=== PATIENT | male | born 1935 | race African-American/Black ===

== ENCOUNTER 2016-07-17 01:23 | Inpatient (IN) | payer MEDICARE ==
[2016-07-17] VITALS (8 sets, daily range): BP systolic 118–152; BP diastolic 63–80
[~2016-07-17] VITALS: Ht 172.7 cm; Wt 59.9 kg
[2016-07-17] MEDS ORDERED: fentaNYL PF VIAL 100 MCG/2 ML VIAL IV PRN (02:00)
[2016-07-17 03:07] LABS: BASO % 0 % (0-3); EOS % 4 % (0-3); HEMATOCRIT 35.1 % (39.0-53.0); HEMOGLOBIN 11.4 g/dL (13.0-17.5); LYMPH # 0.6 x10^3/uL (1.0-4.8); LYMPH % 12 % (24-48); MEAN CORPUSCULAR HEMOGLOBIN 30 pg (25-35); MEAN CORPUSCULAR HGB CONC 33 g/dL (31-37); MEAN CORPUSCULAR VOLUME 91 fL (79-100); MONO % 11 % (0-9); NEUT % 73 % (31-73); PLATELET COUNT 216 x10^3/uL (140-400); RED BLOOD COUNT 3.84 x10^6/uL (4.30-5.70); RED CELL DISTRIBUTION WIDTH 16.4 % (11.5-14.5); WHITE BLOOD COUNT 4.8 x10^3/uL (4.0-11.0)
[2016-07-17 03:09] LABS: BILIRUBIN,URINE NEGATIVE (NEG); GLUCOSE,URINE NEGATIVE (NEG); NITRITE,URINE NEGATIVE (NEG); PROTEIN,URINE 100 mg/dL (NEG-TRACE); UROBILINOGEN,URINE 0.2 mg/dL (0.2 mg/dL)
[2016-07-17 03:19] LABS: GFR 86.8; POTASSIUM 3.9 mmol/L (3.5-5.1)
[2016-07-17 03:24] LABS: INR 1.2 (0.8-1.1); PROTHROMBIN TIME PATIENT 14.5 SEC (11.7-14.0)
[2016-07-17 03:25] LABS: ALBUMIN 2.9 g/dL (3.4-5.0); ALBUMIN/GLOBULIN RATIO 0.6 (1.0-1.7); TOTAL BILIRUBIN 0.3 mg/dL (0.2-1.0); TOTAL PROTEIN 7.4 g/dL (6.4-8.2)
[2016-07-17 03:33] LABS: BACTERIA,URINE FEW /HPF (0-FEW); SQUAMOUS EPITHELIAL CELL,UR MOD /LPF
--- NOTE | 2016-07-17 04:23 | RAD ---
CT head without contrast: Reason for examination: Fell twice tonight with pain. Comparison is made to previous study dated 07/25/2004. Axial images were obtained through the brain. No contrast was administered. Ventricular systems are dilated but symmetric consistent with patient's advanced age and generalized cerebral atrophy. There are areas of decreased density in the frontal lobes bilaterally consistent with severe ischemic changes and chronic infarcts. There is no midline shift. There is no evidence of acute intracranial hemorrhage. There are patchy deep white matter changes in the frontoparietal and parietal lobes. No new masses or edema evident. No abnormalities are seen at the orbits. There is opacification of the visualized portions of the right maxillary antrum. There is also some mild mucosal disease in the sphenoid sinuses and ethmoid air cells. No acute skull abnormality is seen. IMPRESSION: Cerebral atrophy with chronic age-related changes in the deep white matter and chronic changes in the frontal lobes bilaterally consistent with ischemic changes and chronic infarcts. No acute intracranial abnormality seen. Paranasal sinus disease bilaterally. CT cervical spine without contrast: Helical images were obtained through the cervical spine from the skull base to the thoracic apices with no contrast administered. Reconstruction was performed in sagittal and coronal plane. The C1 ring appears to be intact. The odontoid process is intact and normally centered between the lateral masses of C1. The cervical vertebral bodies are normally aligned anteriorly and posteriorly. No acute fracture or subluxation is evident. There are severe degenerative changes from C2 through T1 with severe disc disease throughout the cervical spine. Prevertebral soft tissues are normal. IMPRESSION: Severe degenerative spondylosis throughout the cervical spine. No acute abnormality evident. exposure: One or more of the following individualized dose reduction techniques were utilized for this examination: 1. Automated exposure control 2. Adjustment of the mA and/or kV according to patient size 3. Use of iterative reconstruction technique. Electronically signed by: Tamar Gannon MD (07/17/2016 4:20 AM)
[2016-07-17] MEDS ORDERED: MORPHINE SULFATE 2 MG/ML DISP.SYRIN. IV PRN (04:45)
[2016-07-17] MEDS ORDERED: ASPIRIN 325 MG TABLET PO ONE (04:45)
[2016-07-17] MEDS ORDERED: ONDANSETRON PF 4 MG/2 ML VIAL. IV PRN (04:45)
[2016-07-17] MEDS ORDERED: ACETAMINOPHEN 325 MG TABLET. PO PRN ×2 (04:45→08:00)
--- NOTE | 2016-07-17 04:57 | PHYS DOC ---
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 The patient presents from assisted where he reportedly had 2 falls, unknown whether these were witnessed or unwitnessed, syncopal or mechanical. Staff were concerned about head injury. To me, the patient complains only of left hip pain. Denies headache, neck pain, other extremity pain. Denies chest pain , palpitations, shortness of breath, recent illness. He has history of CVA & dementia. Review of Systems Review of Systems Constitutional: Denies fever or chills Eyes: Denies change in visual acuity HENT: Denies nasal congestion or sore throat Respiratory: Denies cough or shortness of breath Cardiovascular: Denies chest pain or edema GI: Denies abdominal pain, nausea, vomiting, or diarrhea : Denies dysuria or hematuria Musculoskeletal: Denies back pain, reports hip pain Integument: Denies rash or skin lesions Neurologic: Denies headache, focal weakness or sensory changes Current Medications Current Medications Current Medications Medications (Trade) Dose Ordered Sig/Alisha Start Time Stop Time Status Last Admin Dose Admin Fentanyl Citrate (Fentanyl 2ml Vial) 25 mcg PRN Q15MIN PRN 07/17/16 02:00 07/18/16 01:59 Allergies Allergies Allergies Coded Allergies Type Severity Reaction Last Updated Verified hydrochlorothiazide Allergy Intermediate 01/14/14 No Physical Exam Physical Exam Constitutional: Well developed, well nourished, no acute distress, non-toxic appearance. HENT: Normocephalic, atraumatic, bilateral external ears normal, oropharynx moist, nose normal. Eyes: PERRLA, EOMI, conjunctiva normal, no discharge. Neck: supple, no stridor. no midline c-spine tenderness. Cardiovascular: RRR, no murmurs, no edema. Lungs & Thorax: diminished throughout, LCTAB, no wheezing, no respiratory distress. Abdomen: soft, nontender, nondistended. Skin: Warm, dry, no erythema, no rash. Back: No spinal tenderness or step offs. Extremities: left hip no swelling or deformity, no rotational deformity, generalized tenderness over hip, no knee or ankle tenderness, limited ROM to hip , dp/pt 2+, sensation intact to foot. Neurologic: Alert and oriented to person & place, CN2-12 grossly intact, symmetric strength/sensation to UE & LE, no focal deficits noted. confused, memory loss. Psychologic: flat affect Current Patient Data Vital Signs Vital Signs Date Time Temp Pulse Resp B/P (MAP) Pulse Ox O2 Delivery O2 Flow Rate FiO2 07/17/16 04:00 74 17 138/76 (96) 100 Room Air 07/17/16 01:25 98.3 98.3 Lab Values Laboratory Tests Test 07/17/16 02:45 White Blood Count 4.8 x10^3/uL (4.0-11.0) Red Blood Count 3.84 x10^6/uL (4.30-5.70) L Hemoglobin 11.4 g/dL (13.0-17.5) L Hematocrit 35.1 % (39.0-53.0) L Mean Corpuscular Volume 91 fL (79-100) Mean Corpuscular Hemoglobin 30 pg (25-35) Mean Corpuscular Hemoglobin Concent 33 g/dL (31-37) Red Cell Distribution Width 16.4 % (11.5-14.5) H Platelet Count 216 x10^3/uL (140-400) Neutrophils (%) (Auto) 73 % (31-73) Lymphocytes (%) (Auto) 12 % (24-48) L Monocytes (%) (Auto) 11 % (0-9) H Eosinophils (%) (Auto) 4 % (0-3) H Basophils (%) (Auto) 0 % (0-3) Neutrophils # (Auto) 3.5 x10^3uL (1.8-7.7) Lymphocytes # (Auto) 0.6 x10^3/uL (1.0-4.8) L Monocytes # (Auto) 0.5 x10^3/uL (0.0-1.1) Eosinophils # (Auto) 0.2 x10^3/uL (0.0-0.7) Basophils # (Auto) 0.0 x10^3/uL (0.0-0.2) Prothrombin Time 14.5 SEC (11.7-14.0) H Prothrombin Time INR 1.2 (0.8-1.1) H PTT 33 SEC (24-38) Urine Collection Type Unknown Urine Color Yellow Urine Clarity Clear Urine pH 6.0 Urine Specific [place] 1.010 Urine Protein 100 mg/dL (NEG-TRACE) Urine Glucose (UA) Negative mg/dL (NEG) Urine Ketones (Stick) Negative mg/dL (NEG) Urine Blood Negative (NEG) Urine Nitrite Negative (NEG) Urine Bilirubin Negative (NEG) Urine Urobilinogen Dipstick 0.2 mg/dL (0.2 mg/dL) Urine Leukocyte Esterase Negative (NEG) Urine RBC 3-5 /HPF (0-2) Urine WBC 1-4 /HPF (0-4) Urine Squamous Epithelial Cells Mod /LPF Urine Bacteria Few /HPF (0-FEW) Urine Hyaline Casts Many /HPF Sodium Level 141 mmol/L (136-145) Potassium Level 3.9 mmol/L (3.5-5.1) Chloride Level 104 mmol/L (98-107) Carbon Dioxide Level 31 mmol/L (21-32) Anion Gap 6 (6-14) Blood Urea Nitrogen 9 mg/dL (8-26) Creatinine 1.0 mg/dL (0.7-1.3) Estimated GFR (Cockcroft-Gault) 86.8 BUN/Creatinine Ratio 9 (6-20) Glucose Level 107 mg/dL (70-99) H Calcium Level 9.0 mg/dL (8.5-10.1) Total Bilirubin 0.3 mg/dL (0.2-1.0) Aspartate Amino Transferase (AST) 28 U/L (15-37) Alanine Aminotransferase (ALT) 21 U/L (16-63) Alkaline Phosphatase 115 U/L (46-116) Troponin I Quantitative 0.081 ng/mL (0.000-0.055) AM-Yif-B-Type Natriuretic Peptide 428 pg/mL (0-449) Total Protein 7.4 g/dL (6.4-8.2) Albumin 2.9 g/dL (3.4-5.0) L Albumin/Globulin Ratio 0.6 (1.0-1.7) L Laboratory Tests 07/17/16 02:45 Laboratory Tests 07/17/16 02:45 EKG EKG Interpreted by me: Normal sinus rhythm rate 90, no acute ST or T wave changes, normal intervals, no ectopy. [] Radiology/Procedures Radiology/Procedures PROCEDURE: CT HEAD AND CERVICAL SPINE WO CT head without contrast: Reason for examination: Fell twice tonight with pain. Comparison is made to previous study dated 07/25/2004. Axial images were obtained through the brain. No contrast was administered. Ventricular systems are dilated but symmetric consistent with patient's advanced age and generalized cerebral atrophy. There are areas of decreased density in the frontal lobes bilaterally consistent with severe ischemic changes and chronic infarcts. There is no midline shift. There is no evidence of acute intracranial hemorrhage. There are patchy deep white matter changes in the frontoparietal and parietal lobes. No new masses or edema evident. No abnormalities are seen at the orbits. There is opacification of the visualized portions of the right maxillary antrum. There is also some mild mucosal disease in the sphenoid sinuses and ethmoid air cells. No acute skull abnormality is seen. IMPRESSION: Cerebral atrophy with chronic age-related changes in the deep white matter and chronic changes in the frontal lobes bilaterally consistent with ischemic changes and chronic infarcts. No acute intracranial abnormality seen. Paranasal sinus disease bilaterally. CT cervical spine without contrast: Helical images were obtained through the cervical spine from the skull base to the thoracic apices with no contrast administered. Reconstruction was performed in sagittal and coronal plane. The C1 ring appears to be intact. The odontoid process is intact and normally centered between the lateral masses of C1. The cervical vertebral bodies are normally aligned anteriorly and posteriorly. No acute fracture or subluxation is evident. There are severe degenerative changes from C2 through T1 with severe disc disease throughout the cervical spine. Prevertebral soft tissues are normal. IMPRESSION: Severe degenerative spondylosis throughout the cervical spine. No acute abnormality evident. exposure: One or more of the following individualized dose reduction techniques were utilized for this examination: 1. Automated exposure control 2. Adjustment of the mA and/or kV according to patient size 3. Use of iterative reconstruction technique. Electronically signed by: Tamar Head MD (07/17/2016 4:20 AM) DICTATED and SIGNED BY: TAMAR HEAD MD DATE: 07/17/16 0411 XR L hip & pelvis: interpreted by me: s/p surgical changes, no acute fracture or dislocation.[] Course & Med Decision Making Course & Med Decision Making Pertinent Labs and Imaging studies reviewed. (See chart for details) The patient presents with pain after a fall. Only complaint is hip pain. states he has chronic hip pain after surgery. No acute injury identified. CT head/neck shows no acute injury. Troponin mildly elevated, not complaining of chest pain but in setting of syncope recommend admission for further evaluation & treatment. Gave aspirin & obtained repeat troponin. Patient/family agrees with admission. Discussed with Dr. Bliss who agrees to admit to inpatient status. The patient is admitted in stable condition. Dragon Disclaimer Dragon Disclaimer This electronic medical record was generated, in whole or in part, using a voice recognition dictation system. Departure Departure Impression: Primary Impression: Syncope Additional Impressions: Hip pain Elevated troponin Disposition: ADMITTED INPATIENT Admitting Physician: Tanya Bliss Condition: STABLE Referrals: NO PCP (PCP) Problem Qualifiers HAY POWELL MD Jul 17, 2016 04:57
--- NOTE | 2016-07-17 06:17 | EKG ---
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
--- NOTE | 2016-07-17 07:10 | RAD ---
Pelvis with left hip, 3 views, 07/17/2016: History: Fall, pain The bony structures are demineralized. There is an internal metallic fixation device transfixing an old left hip fracture. There is abundant callus formation at the fracture site. The major fracture lines are healed. No definite acute fracture or dislocation is identified. There are mild degenerative changes at both hip joints. Scattered vascular calcifications are present. IMPRESSION: 1. Demineralization. 2. Old, healed, internally fixed left hip fracture. 3. No acute bony abnormality is detected.
[2016-07-17] MEDS ORDERED: SENN-37 PO (07:34)
[2016-07-17] MEDS ORDERED: BREO ELLIPTA 11 EACH IH (07:34)
[2016-07-17] MEDS ORDERED: DONE10TA7 PO (07:34)
[2016-07-17] MEDS ORDERED: MULT-681 PO (07:34)
[2016-07-17] MEDS ORDERED: ACET325T9 PO (07:34)
[2016-07-17] MEDS ORDERED: TRAM50TA PO (07:34)
[2016-07-17] MEDS ORDERED: CHOL10003 PO (07:34)
[2016-07-17] MEDS ORDERED: HYDR-971 PO (07:34)
[2016-07-17] MEDS ORDERED: DOCU-27 PO (07:34)
[2016-07-17] MEDS ORDERED: SENNOSIDES/DOCUSATE 8.6/50MG TABLET. PO PRN (08:00)
[2016-07-17] MEDS: ALBUTEROL SULFATE 2.5 MG/3 ML NEBU. NEB SCH ×4 (09:00→19:53)
[2016-07-17] MEDS ORDERED: NON FORMULARY ITEM (Fluticasone/Vilanterol (Breo Ellipta 100-25 Mcg Inh) 2 PUFF) IH SCH (09:00)
--- NOTE | 2016-07-17 09:06 | PDOC1 ---
History and Physical Date of Admission Date of Admission DATE: 07/17/16 TIME: 09:00 Identification/Chief Complaint Chief Complaint fall x 2 in SNU and might have passed out Problems: Source Source: Caregiver, Chart review, Patient History of Present Illness History of Present Illness 80 y.o AA male, poor historian, sent by snu staff bec apprently fell2x this week and might have syncopized. NO family at bedside, pt not oriented fully, or at least he cant answer questions consistently, He got the dates and place right but other details/questions he is off. HE tell s me he stumbled,and cant remember if he passed out,. HE thinks he lives at home. VS ok, cards consulted, EKG (I have personally reviewed)and tele monitor reassuring. Looking at old admits, hx dementia bec of old CVA, COPD prev smoker quit 27 yrs ago. He is wheezy but not in distress Past Medical History Pulmonary: Bronchitis, COPD CENTRAL NERVOUS SYSTEM: CVA, Dementia Past Surgical History Past Surgical History: No pertinent history Family History Family History: Family History Unknown Social History Smoke: Quit ALCOHOL: none Drugs: None Current Problem List Problem List Problems Medical Problems: (1) Elevated troponin Status: Acute (2) Hip pain Status: Acute Problems: Current Medications Current Medications Current Medications Fentanyl Citrate (Fentanyl 2ml Vial) 25 mcg PRN Q15MIN PRN IV PAIN GREATER THAN 3/10; Start 07/17/16 at 02:00; Stop 07/18/16 at 01:59 Ondansetron HCl (Zofran) 4 mg PRN Q8HRS PRN IV NAUSEA/VOMITING; Start 07/17/16 at 04:45; Stop 07/18/16 at 04:44 Morphine Sulfate 2 mg PRN Q2HR PRN IV PAIN; Start 07/17/16 at 04:45; Stop at 04:44 Acetaminophen (Tylenol) 650 mg PRN Q4HRS PRN PO FEVER; Start 07/17/16 at 04:45; Stop 07/18/16 at 04:44 Aspirin (Indira Aspirin) 325 mg 1X ONCE PO Last administered on 07/17/16t 05:18 ; Start 07/17/16 at 04:45; Stop 07/17/16 at 05:09; Status DC Acetaminophen (Tylenol) 650 mg PRN Q6HRS PRN PO PAIN; Start 07/17/16 at 08:00 Vitamin D (Vitamin D3) 1,000 unit DAILY PO ; Start 07/17/16 at 09:00 Docusate Sodium (Colace) 200 mg DAILY PO ; Start 07/17/16 at 09:00 Donepezil HCl (Aricept) 10 mg DAILY PO ; Start 07/17/16 at 09:00 Senna/Docusate Sodium (Senna Plus) 1 tab PRN BID PRN PO CONSTIPATION; Start 07/17/16 at 08:00 Non-Formulary Medication 2 puff BID IH ; Start 07/17/16 at 09:00; Status UNV Budesonide (Pulmicort) 0.5 mg RTBID NEB ; Start 07/17/16 at 09:00 Albuterol Sulfate (Ventolin Neb Soln) 2.5 mg RTQID NEB ; Start 07/17/16 at 09:00 Active Scripts Active Reported Tylenol (Acetaminophen) 325 Mg Tablet 2 Tab PO PRN Q6HRS Breo Ellipta 100-25 Mcg Inh (Fluticasone/Vilanterol) 1 Each Aer.pow.ba 2 Puff IH BID Tramadol Hcl 50 Mg Tablet 50 Mg PO Q4H [place] 5-325 Tablet (Acetaminophen/Hydrocodone Bitart) 1 Each Tablet 1 Tab PO PRN Q6HRS PRN Colace (Docusate Sodium) 100 Mg Capsule 200 Mg PO DAILY Multi-Day Plus Minerals Tablet (Multivitamin-Min/Iron/FA/Vit K) 1 Each Tablet 1 Each PO Donepezil Hcl 10 Mg Tablet 1 Tab PO DAILY Senokot-S Tablet (Sennosides/Docusate Sodium) 1 Each Tablet 1 Tab PO BID PRN Vitamin D3 (Cholecalciferol (Vitamin D3)) 1,000 Unit Tablet 1 Tab PO DAILY Allergies Allergies: Coded Allergies: hydrochlorothiazide (Unverified Allergy, Intermediate, 01/14/14) ROS Review of System denies all1 4 pt - but maybe unreliable Physical Exam General: Alert, Cooperative, No acute distress HEENT: Atraumatic, PERRLA, EOMI Lungs: Normal air movement, Other (wheezy, no crackles) Abdomen: Normal bowel sounds, Soft, No tenderness, No hepatosplenomegaly, No masses Male Genitals Exam: normal genitalia, normal prostate Rectal Exam: not examined PELVIC: Nml ext genitalia Extremities: No clubbing, No cyanosis, No edema, Normal pulses, No tenderness/ swelling Skin: No rashes, No breakdown, No significant lesion Neuro: Normal gait, Normal speech, Strength at 5/5 X4 ext, Normal tone, Sensation intact, Cranial nerves 3-12 NL, Reflexes 2+ Psych/Mental Status: Mental status NL, Mood NL Vitals Vitals Vital Signs Date Time Temp Pulse Resp B/P (MAP) Pulse Ox O2 Delivery O2 Flow Rate FiO2 07/17/16 07:31 Nasal Cannula 2.0 07/17/16 06:32 98.6 75 137/80 (99) 99 98.6 07/17/16 05:00 16 Labs Labs Laboratory Tests Test 07/17/16 02:45 White Blood Count 4.8 x10^3/uL (4.0-11.0) Red Blood Count 3.84 x10^6/uL (4.30-5.70) Hemoglobin 11.4 g/dL (13.0-17.5) Hematocrit 35.1 % (39.0-53.0) Mean Corpuscular Volume 91 fL (79-100) Mean Corpuscular Hemoglobin 30 pg (25-35) Mean Corpuscular Hemoglobin Concent 33 g/dL (31-37) Red Cell Distribution Width 16.4 % (11.5-14.5) Platelet Count 216 x10^3/uL (140-400) Neutrophils (%) (Auto) 73 % (31-73) Lymphocytes (%) (Auto) 12 % (24-48) Monocytes (%) (Auto) 11 % (0-9) Eosinophils (%) (Auto) 4 % (0-3) Basophils (%) (Auto) 0 % (0-3) Neutrophils # (Auto) 3.5 x10^3uL (1.8-7.7) Lymphocytes # (Auto) 0.6 x10^3/uL (1.0-4.8) Monocytes # (Auto) 0.5 x10^3/uL (0.0-1.1) Eosinophils # (Auto) 0.2 x10^3/uL (0.0-0.7) Basophils # (Auto) 0.0 x10^3/uL (0.0-0.2) Prothrombin Time 14.5 SEC (11.7-14.0) Prothromb Time International Ratio 1.2 (0.8-1.1) Activated Partial Thromboplast Time 33 SEC (24-38) Urine Collection Type Unknown Urine Color Yellow Urine Clarity Clear Urine pH 6.0 Urine Specific [place] 1.010 Urine Protein 100 mg/dL (NEG-TRACE) Urine Glucose (UA) Negative mg/dL (NEG) Urine Ketones (Stick) Negative mg/dL (NEG) Urine Blood Negative (NEG) Urine Nitrite Negative (NEG) Urine Bilirubin Negative (NEG) Urine Urobilinogen Dipstick 0.2 mg/dL (0.2 mg/dL) Urine Leukocyte Esterase Negative (NEG) Urine RBC 3-5 /HPF (0-2) Urine WBC 1-4 /HPF (0-4) Urine Squamous Epithelial Cells Mod /LPF Urine Bacteria Few /HPF (0-FEW) Urine Hyaline Casts Many /HPF Sodium Level 141 mmol/L (136-145) Potassium Level 3.9 mmol/L (3.5-5.1) Chloride Level 104 mmol/L (98-107) Carbon Dioxide Level 31 mmol/L (21-32) Anion Gap 6 (6-14) Blood Urea Nitrogen 9 mg/dL (8-26) Creatinine 1.0 mg/dL (0.7-1.3) Estimated GFR (Cockcroft-Gault) 86.8 BUN/Creatinine Ratio 9 (6-20) Glucose Level 107 mg/dL (70-99) Calcium Level 9.0 mg/dL (8.5-10.1) Total Bilirubin 0.3 mg/dL (0.2-1.0) Aspartate Amino Transf (AST/SGOT) 28 U/L (15-37) Alanine Aminotransferase (ALT/SGPT) 21 U/L (16-63) Alkaline Phosphatase 115 U/L (46-116) Troponin I Quantitative 0.081 ng/mL (0.000-0.055) KB-Yta-[id number]-Type Natriuretic Peptide 428 pg/mL (0-449) Total Protein 7.4 g/dL (6.4-8.2) Albumin 2.9 g/dL (3.4-5.0) Albumin/Globulin Ratio 0.6 (1.0-1.7) Laboratory Tests Test 07/17/16 02:45 White Blood Count 4.8 x10^3/uL (4.0-11.0) Red Blood Count 3.84 x10^6/uL (4.30-5.70) Hemoglobin 11.4 g/dL (13.0-17.5) Hematocrit 35.1 % (39.0-53.0) Mean Corpuscular Volume 91 fL (79-100) Mean Corpuscular Hemoglobin 30 pg (25-35) Mean Corpuscular Hemoglobin Concent 33 g/dL (31-37) Red Cell Distribution Width 16.4 % (11.5-14.5) Platelet Count 216 x10^3/uL (140-400) Neutrophils (%) (Auto) 73 % (31-73) Lymphocytes (%) (Auto) 12 % (24-48) Monocytes (%) (Auto) 11 % (0-9) Eosinophils (%) (Auto) 4 % (0-3) Basophils (%) (Auto) 0 % (0-3) Neutrophils # (Auto) 3.5 x10^3uL (1.8-7.7) Lymphocytes # (Auto) 0.6 x10^3/uL (1.0-4.8) Monocytes # (Auto) 0.5 x10^3/uL (0.0-1.1) Eosinophils # (Auto) 0.2 x10^3/uL (0.0-0.7) Basophils # (Auto) 0.0 x10^3/uL (0.0-0.2) Prothrombin Time 14.5 SEC (11.7-14.0) Prothromb Time International Ratio 1.2 (0.8-1.1) Activated Partial Thromboplast Time 33 SEC (24-38) Urine Collection Type Unknown Urine Color Yellow Urine Clarity Clear Urine pH 6.0 Urine Specific [place] 1.010 Urine Protein 100 mg/dL (NEG-TRACE) Urine Glucose (UA) Negative mg/dL (NEG) Urine Ketones (Stick) Negative mg/dL (NEG) Urine Blood Negative (NEG) Urine Nitrite Negative (NEG) Urine Bilirubin Negative (NEG) Urine Urobilinogen Dipstick 0.2 mg/dL (0.2 mg/dL) Urine Leukocyte Esterase Negative (NEG) Urine RBC 3-5 /HPF (0-2) Urine WBC 1-4 /HPF (0-4) Urine Squamous Epithelial Cells Mod /LPF Urine Bacteria Few /HPF (0-FEW) Urine Hyaline Casts Many /HPF Sodium Level 141 mmol/L (136-145) Potassium Level 3.9 mmol/L (3.5-5.1) Chloride Level 104 mmol/L (98-107) Carbon Dioxide Level 31 mmol/L (21-32) Anion Gap 6 (6-14) Blood Urea Nitrogen 9 mg/dL (8-26) Creatinine 1.0 mg/dL (0.7-1.3) Estimated GFR (Cockcroft-Gault) 86.8 BUN/Creatinine Ratio 9 (6-20) Glucose Level 107 mg/dL (70-99) Calcium Level 9.0 mg/dL (8.5-10.1) Total Bilirubin 0.3 mg/dL (0.2-1.0) Aspartate Amino Transf (AST/SGOT) 28 U/L (15-37) Alanine Aminotransferase (ALT/SGPT) 21 U/L (16-63) Alkaline Phosphatase 115 U/L (46-116) Troponin I Quantitative 0.081 ng/mL (0.000-0.055) YP-Dwa-N-Type Natriuretic Peptide 428 pg/mL (0-449) Total Protein 7.4 g/dL (6.4-8.2) Albumin 2.9 g/dL (3.4-5.0) Albumin/Globulin Ratio 0.6 (1.0-1.7) VTE Prophylaxis Ordered VTE Prophylaxis Devices: Yes VTE Pharmacological Prophylaxi: Yes Assessment/Plan Assessment/Plan 1.Multiple falls in SNU, possible syncope with LOC 2. COPD, acute bronchitis, Ex smoker (quit 27 yrs) 3. Dementia sec to hx CVA in past 4. 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 PLAn: Admit Hook to Tele Cards consulted PT/OT Start PO pred for wheezing Nebs CONRAD Resume meds Check orthostatic DVT prophy ENIO Valle RN, MD Jul 17, 2016 09:05
[2016-07-17] MEDS ORDERED: predniSONE 20 MG TABLET PO ONE (09:30)
[2016-07-17] MEDS: CHOLECALCIFEROL (VITAMIN D3) 1,000 UNIT TABLET PO SCH (09:35)
[2016-07-17] MEDS: DONEPEZIL HCL 10 MG TABLET. PO SCH (09:36)
[2016-07-17] MEDS: DOCUSATE SODIUM 100 MG CAPSULE. PO SCH (09:36)
--- NOTE | 2016-07-17 09:50 | PDOC2 ---
CARDIAC CONSULT DATE OF CONSULT Date of Consult DATE: 07/17/16 TIME: 09:46 REASON FOR CONSULT Reason for Consult: elevated troponin REFERRING PHYSICIAN Referring Physician: Dr. Bethany Duran SOURCE Source: Chart review, Patient (who is an unreliable historian) HISTORY OF PRESENT ILLNESS HISTORY OF PRESENT ILLNESS 80 year old male admitted through ER from [place] with reports of syncope. Patient oriented to only the president of [place] and without recall of events, other than he fell and pain in the right hip, though he points to the left hip. Troponin 0.08. No acute changes in EKG. No records from [facility] other than face sheet and no family present. Reason for Visit: elevated troponin PAST MEDICAL HISTORY Cardiovascular: HTN Pulmonary: COPD CENTRAL NERVOUS SYSTEM: CVA, Dementia (vascular) GI: Other (colon polyps) Rheumatologic: Rheumatoid arthritis ENT: Other (bilateral cataracts) Endocrine: Osteoporosis PAST SURGICAL HISTORY Past Surgical History surgical history unknown FAMILY HISTORY Family History: Family History Unknown SOCIAL HISTORY Smoke: Quit Lives: Detention CURRENT MEDICATIONS CURRENT MEDICATIONS Current Medications Medications (Trade) Dose Ordered Sig/Alisha Route PRN Reason Start Time Stop Time Status Last Admin Dose Admin Aspirin (Indira Aspirin) 325 mg 1X ONCE PO 07/17/16 04:45 07/17/16 05:09 DC 07/17/16 05:18 Vitamin D (Vitamin D3) 1,000 unit DAILY PO 07/17/16 09:00 07/17/16 09:35 Docusate Sodium (Colace) 200 mg DAILY PO 07/17/16 09:00 07/17/16 09:36 Donepezil HCl (Aricept) 10 mg DAILY PO 07/17/16 09:00 07/17/16 09:36 Prednisone (Prednisone) 60 mg 1X ONCE PO 07/17/16 09:30 07/17/16 09:31 DC 07/17/16 09:36 ALLERGIES ALLERGIES: Coded Allergies: hydrochlorothiazide (Unverified Allergy, Intermediate, 01/14/14) ROS Review of System right hip pain but points to left hip; patient without recall of other symptoms PHYSICAL EXAM General: Cooperative, No acute distress HEENT: Atraumatic Lungs: Clear to auscultation Heart: Normal S1, Normal S2, Other (2/6 systolic murmur; LSB and LLSB) Abdomen: Normal bowel sounds, Soft Extremities: No edema Skin: No rashes Neuro: Normal speech Psych/Mental Status: Mood NL MUSCULOSKELETAL: Osteoarthritic changes both hands VITALS VITALS Vital Signs Date Time Temp Pulse Resp B/P (MAP) Pulse Ox O2 Delivery O2 Flow Rate FiO2 07/17/16 07:31 Nasal Cannula 2.0 07/17/16 06:32 98.6 75 137/80 (99) 99 98.6 07/17/16 05:00 16 LABS Lab: Laboratory Tests Test 07/17/16 02:45 White Blood Count 4.8 x10^3/uL (4.0-11.0) Red Blood Count 3.84 x10^6/uL (4.30-5.70) Hemoglobin 11.4 g/dL (13.0-17.5) Hematocrit 35.1 % (39.0-53.0) Mean Corpuscular Volume 91 fL (79-100) Mean Corpuscular Hemoglobin 30 pg (25-35) Mean Corpuscular Hemoglobin Concent 33 g/dL (31-37) Red Cell Distribution Width 16.4 % (11.5-14.5) Platelet Count 216 x10^3/uL (140-400) Neutrophils (%) (Auto) 73 % (31-73) Lymphocytes (%) (Auto) 12 % (24-48) Monocytes (%) (Auto) 11 % (0-9) Eosinophils (%) (Auto) 4 % (0-3) Basophils (%) (Auto) 0 % (0-3) Neutrophils # (Auto) 3.5 x10^3uL (1.8-7.7) Lymphocytes # (Auto) 0.6 x10^3/uL (1.0-4.8) Monocytes # (Auto) 0.5 x10^3/uL (0.0-1.1) Eosinophils # (Auto) 0.2 x10^3/uL (0.0-0.7) Basophils # (Auto) 0.0 x10^3/uL (0.0-0.2) Prothrombin Time 14.5 SEC (11.7-14.0) Prothromb Time International Ratio 1.2 (0.8-1.1) Activated Partial Thromboplast Time 33 SEC (24-38) Urine Collection Type Unknown Urine Color Yellow Urine Clarity Clear Urine pH 6.0 Urine Specific [place] 1.010 Urine Protein 100 mg/dL (NEG-TRACE) Urine Glucose (UA) Negative mg/dL (NEG) Urine Ketones (Stick) Negative mg/dL (NEG) Urine Blood Negative (NEG) Urine Nitrite Negative (NEG) Urine Bilirubin Negative (NEG) Urine Urobilinogen Dipstick 0.2 mg/dL (0.2 mg/dL) Urine Leukocyte Esterase Negative (NEG) Urine RBC 3-5 /HPF (0-2) Urine WBC 1-4 /HPF (0-4) Urine Squamous Epithelial Cells Mod /LPF Urine Bacteria Few /HPF (0-FEW) Urine Hyaline Casts Many /HPF Sodium Level 141 mmol/L (136-145) Potassium Level 3.9 mmol/L (3.5-5.1) Chloride Level 104 mmol/L (98-107) Carbon Dioxide Level 31 mmol/L (21-32) Anion Gap 6 (6-14) Blood Urea Nitrogen 9 mg/dL (8-26) Creatinine 1.0 mg/dL (0.7-1.3) Estimated GFR (Cockcroft-Gault) 86.8 BUN/Creatinine Ratio 9 (6-20) Glucose Level 107 mg/dL (70-99) Calcium Level 9.0 mg/dL (8.5-10.1) Total Bilirubin 0.3 mg/dL (0.2-1.0) Aspartate Amino Transf (AST/SGOT) 28 U/L (15-37) Alanine Aminotransferase (ALT/SGPT) 21 U/L (16-63) Alkaline Phosphatase 115 U/L (46-116) Troponin I Quantitative 0.081 ng/mL (0.000-0.055) SY-Goc-D-Type Natriuretic Peptide 428 pg/mL (0-449) Total Protein 7.4 g/dL (6.4-8.2) Albumin 2.9 g/dL (3.4-5.0) Albumin/Globulin Ratio 0.6 (1.0-1.7) IMAGES IMAGES no CXR for review EKG EKG SR; ? LBBB; appears to have intermittent atrial pacing spikes on EKG but pt does not have PPM - artifact; no acute changes ASSESSMENT/PLAN ASSESSMENT/PLAN 1. elevated troponin not consistent with ACS ? syncope - patient unable to report symptoms echo to evaluate for WMA and assess LV function will need to discuss with family - ? candidacy for aggressive intervention if becomes indicated 2. undiagnosed murmur echo to evaluate 3. HTN continue meds 4. acute bronchitis/COPD per primary service 5. 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
[2016-07-17] MEDS: BUDESONIDE 0.5 MG/2 ML NEBU. NEB SCH ×2 (11:45→19:53)
--- NOTE | 2016-07-17 13:16 | EKG ---
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
--- NOTE | 2016-07-17 16:51 | CARD ---
APPROVED REPORT EXAM: Two-dimensional and M-mode echocardiogram with Doppler and color Doppler. Other Information Quality : GoodHR: 85bpm Rhythm : NSR INDICATION Syncope Elevated troponins, Falls 2D DIMENSIONS RVDd2.9 (2.9-3.5cm)Left Atrium(2D)2.5 (1.6-4.0cm) IVSd0.9 (0.7-1.1cm)Aortic Root(2D)3.1 (2.0-3.7cm) LVDd3.6 (3.9-5.9cm)LVOT Diameter2.4 (1.8-2.4cm) PWd0.9 (0.7-1.1cm)LVDs2.5 (2.5-4.0cm) FS (%) 31.9 %SV33.8 ml LVEF(%)60.9 (>50%) Aortic Valve AoV Peak Bernard.350.0cm/sAoV VTI58.9cm AO Peak GR.49.0mmHgLVOT Peak Bernard.101.8cm/s AO Mean GR.27mmHgAVA (VMAX)1.36cm2 Mitral Valve MV E Ihrhrfad35.7cm/sMV E Peak Gr.14mmHg MV DECEL [id number] A Wexyiudj716.0cm/s MV E Mean Gr.4mmHgE/A Ratio0.5 MV A [id number] Pulmonary Valve PV Peak Eitjpcwd965.5cm/s Tricuspid Valve TR P. Ntnivhuu387bh/sTR Peak Gr.66mmHg Pulmonary Vein S1 Esukckal59.5cm/sD2 Duafvfxd67.7cm/s PVa [id number] LEFT VENTRICLE The left ventricle is normal size. There is mild concentric left ventricular hypertrophy. The left ve ntricular systolic function is normal and the ejection fraction is within normal range. The Ejection Fraction is 65-70%. There is normal LV segmental wall motion. Transmitral Doppler flow pattern is Gra de I-abnormal relaxation pattern. RIGHT VENTRICLE The right ventricle is normal size. There is normal right ventricular wall thickness. The right ventr icular systolic function is normal. ATRIA The left atrium size is normal. The right atrium size is normal. The interatrial septum is intact wit h no evidence for an atrial septal defect or patent foramen ovale as noted on 2-D or Doppler imaging. AORTIC VALVE The aortic valve is moderately to severely The aortic valve is trileaflet. Doppler and Color Flow rev ealed no significant aortic regurgitation. Calculated aortic valve area is 1.3 cm2 with maximum press ure gradient of 49.0 mmHg and mean pressure gradient of 27.0 mmHg. Dimensionless index is .27 suggest toni of moderate to severe . MITRAL VALVE Mitral annular calcification is moderate. The mitral valve leaflets are thickened. There is no eviden ce of mitral valve prolapse. There is no mitral valve stenosis. Doppler and Color Flow revealed no mi tral valve regurgitation noted. TRICUSPID VALVE Doppler and Color Flow revealed mild tricuspid regurgitation.The pulmonary artery systolic pressure i s estimated at 68 mmHg. There is moderate severe pulmonary hypertension. PULMONIC VALVE Doppler and Color Flow revealed no pulmonic valvular regurgitation. There is no pulmonic valvular olayinka nosis. GREAT VESSELS The aortic root is normal in size. The ascending aorta is normal in size. The pulmonary artery is nor mal. The IVC is normal in size and collapses >50% with inspiration. PERICARDIAL EFFUSION Probable small to moderate left pleural effusion. There is no evidence of significant pericardial eff usion. Critical Notification Critical Value: No <Conclusion> The left ventricular systolic function is normal and the ejection fraction is within normal range. Th e Ejection Fraction is 65-70%. There is normal LV segmental wall motion. Calculated aortic valve area is 1.3 cm2 with maximum pressure gradient of 49.0 mmHg and mean pressure gradient of 27.0 mmHg. Dimensionless index is .27 suggestive of moderate to severe . Doppler and Color Flow revealed mild tricuspid regurgitation.The pulmonary artery systolic pressure i s estimated at 68 mmHg. There is moderate severe pulmonary hypertension. Probable small to moderate left pleural effusion.
--- NOTE | 2016-07-17 18:17 | EKG ---
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
[2016-07-18 03:15] VITALS: BP 119/67
[2016-07-18 06:10] LABS: BASO % 0 % (0-3); EOS % 0 % (0-3); HEMATOCRIT 32.8 % (39.0-53.0); HEMOGLOBIN 10.7 g/dL (13.0-17.5); LYMPH # 0.8 x10^3/uL (1.0-4.8); LYMPH % 14 % (24-48); MEAN CORPUSCULAR HEMOGLOBIN 30 pg (25-35); MEAN CORPUSCULAR HGB CONC 33 g/dL (31-37); MEAN CORPUSCULAR VOLUME 91 fL (79-100); MONO % 13 % (0-9); NEUT % 73 % (31-73); PLATELET COUNT 209 x10^3/uL (140-400); RED BLOOD COUNT 3.61 x10^6/uL (4.30-5.70); RED CELL DISTRIBUTION WIDTH 15.9 % (11.5-14.5); WHITE BLOOD COUNT 5.9 x10^3/uL (4.0-11.0)
[2016-07-18 06:42] LABS: CALCIUM 8.8 mg/dL (8.5-10.1); CREATININE 0.7 mg/dL (0.7-1.3); POTASSIUM 3.7 mmol/L (3.5-5.1)
[2016-07-18 07:30] VITALS: BP 134/71
[2016-07-18] MEDS: BUDESONIDE 0.5 MG/2 ML NEBU. NEB SCH (08:36)
[2016-07-18] MEDS: ALBUTEROL SULFATE 2.5 MG/3 ML NEBU. NEB SCH ×3 (08:36→15:06)
[2016-07-18] MEDS: CHOLECALCIFEROL (VITAMIN D3) 1,000 UNIT TABLET PO SCH (08:50)
[2016-07-18] MEDS: DONEPEZIL HCL 10 MG TABLET. PO SCH (08:50)
[2016-07-18] MEDS: DOCUSATE SODIUM 100 MG CAPSULE. PO SCH (08:50)
[2016-07-18] MEDS ORDERED: predniSONE 20 MG TABLET PO SCH (09:00)
--- NOTE | 2016-07-18 09:31 | RAD ---
Chest, 2 views, 07/18/2016: History: Cough and intermittent chest pain Comparison is made to a study from 01/16/2014. The heart is within normal limits in size. There is tortuosity and calcific plaquing of the thoracic aorta. There appear to be emphysematous changes in the lungs. There are small bilateral pleural effusions. There is mild underlying basilar atelectasis/infiltrate, more so on the left. IMPRESSION: 1. Emphysema. 2. Small bilateral pleural effusions. 3. Mild left basilar atelectasis and/or pneumonitis.
[2016-07-18 11:00] VITALS: BP 139/68
--- NOTE | 2016-07-18 12:01 | PDOC3 ---
Discharge Summary Visit Information Date of Admission: Jul 17, 2016 Date of Discharge: Jul 18, 2016 Admitting Diagnosis Comment: 1.Multiple falls in SNU, possible syncope with LOC 2. COPD, acute bronchitis, Ex smoker (quit 27 yrs) 3. Dementia sec to hx CVA in past 4. 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 Final Diagnosis Problems Medical Problems: (1) Elevated troponin Status: Acute (2) Hip pain Status: Acute Brief Hospital Course Allergies Allergies Coded Allergies Type Severity Reaction Last Updated Verified hydrochlorothiazide Allergy Intermediate 01/14/14 No Vital Signs Vital Signs Date Time Temp Pulse Resp B/P (MAP) Pulse Ox O2 Delivery O2 Flow Rate FiO2 07/18/16 11:00 98.2 87 18 139/68 (91) 97 Room Air 98.2 07/17/16 19:55 2.0 Lab Results Laboratory Tests Test 07/17/16 02:45 07/17/16 07:30 07/17/16 10:45 07/17/16 16:25 White Blood Count 4.8 x10^3/uL (4.0-11.0) Red Blood Count 3.84 x10^6/uL (4.30-5.70) Hemoglobin 11.4 g/dL (13.0-17.5) Hematocrit 35.1 % (39.0-53.0) Mean Corpuscular Volume 91 fL (79-100) Mean Corpuscular Hemoglobin 30 pg (25-35) Mean Corpuscular Hemoglobin Concent 33 g/dL (31-37) Red Cell Distribution Width 16.4 % (11.5-14.5) Platelet Count 216 x10^3/uL (140-400) Neutrophils (%) (Auto) 73 % (31-73) Lymphocytes (%) (Auto) 12 % (24-48) Monocytes (%) (Auto) 11 % (0-9) Eosinophils (%) (Auto) 4 % (0-3) Basophils (%) (Auto) 0 % (0-3) Neutrophils # (Auto) 3.5 x10^3uL (1.8-7.7) Lymphocytes # (Auto) 0.6 x10^3/uL (1.0-4.8) Monocytes # (Auto) 0.5 x10^3/uL (0.0-1.1) Eosinophils # (Auto) 0.2 x10^3/uL (0.0-0.7) Basophils # (Auto) 0.0 x10^3/uL (0.0-0.2) Prothrombin Time 14.5 SEC (11.7-14.0) Prothromb Time International Ratio 1.2 (0.8-1.1) Activated Partial Thromboplast Time 33 SEC (24-38) Urine Collection Type Unknown Urine Color Yellow Urine Clarity Clear Urine pH 6.0 Urine Specific [place] 1.010 Urine Protein 100 mg/dL (NEG-TRACE) Urine Glucose (UA) Negative mg/dL (NEG) Urine Ketones (Stick) Negative mg/dL (NEG) Urine Blood Negative (NEG) Urine Nitrite Negative (NEG) Urine Bilirubin Negative (NEG) Urine Urobilinogen Dipstick 0.2 mg/dL (0.2 mg/dL) Urine Leukocyte Esterase Negative (NEG) Urine RBC 3-5 /HPF (0-2) Urine WBC 1-4 /HPF (0-4) Urine Squamous Epithelial Cells Mod /LPF Urine Bacteria Few /HPF (0-FEW) Urine Hyaline Casts Many /HPF Sodium Level 141 mmol/L (136-145) Potassium Level 3.9 mmol/L (3.5-5.1) Chloride Level 104 mmol/L (98-107) Carbon Dioxide Level 31 mmol/L (21-32) Anion Gap 6 (6-14) Blood Urea Nitrogen 9 mg/dL (8-26) Creatinine 1.0 mg/dL (0.7-1.3) Estimated GFR (Cockcroft-Gault) 86.8 BUN/Creatinine Ratio 9 (6-20) Glucose Level 107 mg/dL (70-99) Calcium Level 9.0 mg/dL (8.5-10.1) Total Bilirubin 0.3 mg/dL (0.2-1.0) Aspartate Amino Transf (AST/SGOT) 28 U/L (15-37) Alanine Aminotransferase (ALT/SGPT) 21 U/L (16-63) Alkaline Phosphatase 115 U/L (46-116) Troponin I Quantitative 0.081 ng/mL (0.000-0.055) 0.082 ng/mL (0.000-0.055) 0.035 ng/mL (0.000-0.055) JY-Eqj-A-Type Natriuretic Peptide 428 pg/mL (0-449) Total Protein 7.4 g/dL (6.4-8.2) Albumin 2.9 g/dL (3.4-5.0) Albumin/Globulin Ratio 0.6 (1.0-1.7) Nasal Screen MRSA (PCR) Negative (Negative) Test 07/18/16 05:15 White Blood Count 5.9 x10^3/uL (4.0-11.0) Red Blood Count 3.61 x10^6/uL (4.30-5.70) Hemoglobin 10.7 g/dL (13.0-17.5) Hematocrit 32.8 % (39.0-53.0) Mean Corpuscular Volume 91 fL (79-100) Mean Corpuscular Hemoglobin 30 pg (25-35) Mean Corpuscular Hemoglobin Concent 33 g/dL (31-37) Red Cell Distribution Width 15.9 % (11.5-14.5) Platelet Count 209 x10^3/uL (140-400) Neutrophils (%) (Auto) 73 % (31-73) Lymphocytes (%) (Auto) 14 % (24-48) Monocytes (%) (Auto) 13 % (0-9) Eosinophils (%) (Auto) 0 % (0-3) Basophils (%) (Auto) 0 % (0-3) Neutrophils # (Auto) 4.3 x10^3uL (1.8-7.7) Lymphocytes # (Auto) 0.8 x10^3/uL (1.0-4.8) Monocytes # (Auto) 0.8 x10^3/uL (0.0-1.1) Eosinophils # (Auto) 0.0 x10^3/uL (0.0-0.7) Basophils # (Auto) 0.0 x10^3/uL (0.0-0.2) Sodium Level 142 mmol/L (136-145) Potassium Level 3.7 mmol/L (3.5-5.1) Chloride Level 106 mmol/L (98-107) Carbon Dioxide Level 30 mmol/L (21-32) Anion Gap 6 (6-14) Blood Urea Nitrogen 11 mg/dL (8-26) Creatinine 0.7 mg/dL (0.7-1.3) Estimated GFR (Cockcroft-Gault) 131.0 Glucose Level 100 mg/dL (70-99) Calcium Level 8.8 mg/dL (8.5-10.1) Laboratory Tests Test 07/17/16 16:25 07/18/16 05:15 Troponin I Quantitative 0.035 ng/mL (0.000-0.055) White Blood Count 5.9 x10^3/uL (4.0-11.0) Red Blood Count 3.61 x10^6/uL (4.30-5.70) Hemoglobin 10.7 g/dL (13.0-17.5) Hematocrit 32.8 % (39.0-53.0) Mean Corpuscular Volume 91 fL (79-100) Mean Corpuscular Hemoglobin 30 pg (25-35) Mean Corpuscular Hemoglobin Concent 33 g/dL (31-37) Red Cell Distribution Width 15.9 % (11.5-14.5) Platelet Count 209 x10^3/uL (140-400) Neutrophils (%) (Auto) 73 % (31-73) Lymphocytes (%) (Auto) 14 % (24-48) Monocytes (%) (Auto) 13 % (0-9) Eosinophils (%) (Auto) 0 % (0-3) Basophils (%) (Auto) 0 % (0-3) Neutrophils # (Auto) 4.3 x10^3uL (1.8-7.7) Lymphocytes # (Auto) 0.8 x10^3/uL (1.0-4.8) Monocytes # (Auto) 0.8 x10^3/uL (0.0-1.1) Eosinophils # (Auto) 0.0 x10^3/uL (0.0-0.7) Basophils # (Auto) 0.0 x10^3/uL (0.0-0.2) Sodium Level 142 mmol/L (136-145) Potassium Level 3.7 mmol/L (3.5-5.1) Chloride Level 106 mmol/L (98-107) Carbon Dioxide Level 30 mmol/L (21-32) Anion Gap 6 (6-14) Blood Urea Nitrogen 11 mg/dL (8-26) Creatinine 0.7 mg/dL (0.7-1.3) Estimated GFR (Cockcroft-Gault) 131.0 Glucose Level 100 mg/dL (70-99) Calcium Level 8.8 mg/dL (8.5-10.1) Brief Hospital Course Mr. Laurent is a 80 old [sex] who presented with [ ]80 y.o AA male, poor historian, sent by snu staff bec apprently fell2x this week and might have syncopized. NO family at bedside, pt not oriented fully, or at least he cant answer questions consistently, He got the dates and place right but other details/questions he is off. HE tell s me he stumbled,and cant remember if he passed out,. HE thinks he lives at home. VS ok, cards consulted, EKG (I have personally reviewed)and tele monitor reassuring. Looking at old admits, hx dementia bec of old CVA, COPD prev smoker quit 27 yrs ago. He is wheezy but not in distress CXR is neg No recurrence of syncope in house, Worked with PT fine Left knee though is bothersome, very limited flexion,agreeable to injections if needed = maybe causing his falls and limited mobility? After physiatry injection then back to SNU today. Cleared form cards Dw RNs and pt pt seen and examined DispO;SNu NO change in home meds Discharge Information Condition at Discharge: Improved, Stable Disposition/Orders: Other (snf) Scheduled Acetaminophen (Tylenol), 2 TAB PO PRN Q6HRS, (Reported) Cholecalciferol (Vitamin D3) (Vitamin D3), 1 TAB PO DAILY, (Reported) Docusate Sodium (Colace), 200 MG PO DAILY, (Reported) Donepezil Hcl (Donepezil Hcl), 1 TAB PO DAILY, (Reported) Fluticasone/Vilanterol (Breo Ellipta 100-25 Mcg Inh), 2 PUFF IH BID, (Reported) Tramadol Hcl (Tramadol Hcl), 50 MG PO Q4H, (Reported) Scheduled PRN Hydrocodone/Apap 5-325 ([place] 5-325 Tablet), 1 TAB PO PRN Q6HRS PRN for PAIN, ( Reported) Sennosides/Docusate Sodium (Senokot-S Tablet), 1 TAB PO BID PRN for CONSTIPATION , (Reported) Miscellaneous Medications Multivitamin-Min/Iron/FA/Vit K (Multi-Day Plus Minerals Tablet), 1 EACH PO, ( Reported) ENIO KULKARNI MD Jul 18, 2016 12:01
--- NOTE | 2016-07-18 12:03 | PDOC ---
CARDIO Progress Notes Date and Time Date of Service 07/18/2016 Time of Evaluation 1158 Subjective Subjective: No Chest Pain, No shortness of breath, No Palpitations, No Dizziness, Other (cough) Vitals Vitals Vital Signs Date Time Temp Pulse Resp B/P (MAP) Pulse Ox O2 Delivery O2 Flow Rate FiO2 07/18/16 11:00 98.2 87 18 139/68 (91) 97 Room Air 98.2 07/17/16 19:55 2.0 Weight Weight [ ] Input and Output Intake and Output Intake and Output 07/18/16 07:00 Intake Total 600 ml Output Total 950 ml Balance -350 ml Intake Oral 600 ml Output Urine Total 950 ml # Voids 2 Laboratory Labs Laboratory Tests Test 07/17/16 16:25 07/18/16 05:15 Troponin I Quantitative 0.035 ng/mL (0.000-0.055) White Blood Count 5.9 x10^3/uL (4.0-11.0) Red Blood Count 3.61 x10^6/uL (4.30-5.70) Hemoglobin 10.7 g/dL (13.0-17.5) Hematocrit 32.8 % (39.0-53.0) Mean Corpuscular Volume 91 fL (79-100) Mean Corpuscular Hemoglobin 30 pg (25-35) Mean Corpuscular Hemoglobin Concent 33 g/dL (31-37) Red Cell Distribution Width 15.9 % (11.5-14.5) Platelet Count 209 x10^3/uL (140-400) Neutrophils (%) (Auto) 73 % (31-73) Lymphocytes (%) (Auto) 14 % (24-48) Monocytes (%) (Auto) 13 % (0-9) Eosinophils (%) (Auto) 0 % (0-3) Basophils (%) (Auto) 0 % (0-3) Neutrophils # (Auto) 4.3 x10^3uL (1.8-7.7) Lymphocytes # (Auto) 0.8 x10^3/uL (1.0-4.8) Monocytes # (Auto) 0.8 x10^3/uL (0.0-1.1) Eosinophils # (Auto) 0.0 x10^3/uL (0.0-0.7) Basophils # (Auto) 0.0 x10^3/uL (0.0-0.2) Sodium Level 142 mmol/L (136-145) Potassium Level 3.7 mmol/L (3.5-5.1) Chloride Level 106 mmol/L (98-107) Carbon Dioxide Level 30 mmol/L (21-32) Anion Gap 6 (6-14) Blood Urea Nitrogen 11 mg/dL (8-26) Creatinine 0.7 mg/dL (0.7-1.3) Estimated GFR (Cockcroft-Gault) 131.0 Glucose Level 100 mg/dL (70-99) Calcium Level 8.8 mg/dL (8.5-10.1) Physical Exam HEENT: Neck Supple W Full Motion Chest: Symmetric LUNGS: Other (coarse) Heart: S1S2, RRR, murmurs (2/6 LSB) Abdomen: Soft N/T Extremities: No Edema Neurology: follow commands Diagnostic Tests Echocardiogram: Normal LVEF (65-70%), Other (moderate to severe ; moderate severe pulm HTN with PA of 68 mm Hg) Chest X-ray: No CHF, Other (emphysema; small bilateral pleural effusions) Assessment Assessment 1. elevated troponin not consistent with ACS echo with preserved LV function and no wall motion abnormalities 2. aortic stenosis moderate to severe on echo 3. HTN continue meds 4. acute bronchitis/COPD echo demonstrating moderate severe pulmonary HTN with PA of 68 mm HG per primary service 5. dementia MATT INFANTE APRN Jul 18, 2016 12:03
[2016-07-18 15:00] VITALS: BP 158/81
[2016-07-18] MEDS ORDERED: BUPIVACAINE MPF 0.25% 10 ML VIAL. IJ ONE (15:45)
[2016-07-18] MEDS ORDERED: methylPREDNISolone ACETATE 40 MG/ML VIAL. IM ONE ×2 (15:45)
--- NOTE | 2016-07-19 05:27 | CONS ---
DATE OF CONSULTATION: 07/18/2016 ATTENDING PHYSICIAN: Tanya Bliss MD. The patient was seen at the request of Dr. Bliss for rehab evaluation about his left knee and hip pain. HISTORY OF PRESENT ILLNESS: This is an 80-year-old right-handed male admitted through the Emergency Room ask per transfer from long term. The patient is a poor historian. The patient apparently fell couple of times this week, might have syncopized. The patient since admission had radiological studies including x-ray of hip and pelvis, which revealed old healed internal ____ fracture, left hip with demineralization and he had CT scan of the brain, which revealed cerebral atrophy with chronic age-related changes in the deep white matter and chronic changes in the frontal lobes bilaterally consistent with the ischemic changes and chronic infarcts, paranasal sinus disease bilaterally, no acute abnormality was detected and CT scan of cervical spine revealed severe degenerative spondylosis throughout cervical spine without any acute abnormality and chest x-ray revealed emphysema, small bilateral pleural effusions. The patient is known ALLERGIC TO HYDROCHLOROTHIAZIDE. The patient has been in a [facility] since 05/11/2016. No steps for him to manage and he has been independent with his self-care using a handheld shower, indicated he prefers tub bath. He had about 4 steps to manage at his home. He has been walking without any assistive devices. He has been using a roller walker since. He had a fracture of the left hip for which he had hip nailing done in 04/2016. The patient apparently had a home visit from [facility] to see how his inability to climb stairs and use the bathroom. The patient required some assistance with dressing, especially putting on his shoes and socks. He walked using a roller walker with a contact guard assistance for about 120 feet. Plans for him to go back to [facility] this afternoon. The patient would like to have an injection done to his left knee and left hip. PHYSICAL EXAMINATION: Today revealed an elderly male. He is awake, oriented to place and person, follows commands appropriately, moves all four extremities voluntarily where he had 4+/5 grade muscle strength and deep tendon reflexes are decreased overall with absent knee and ankle jerks and he had slightly decreased touch and pinprick sensation over left lower extremity when compared to the right side. Straight leg raising test is negative bilaterally. He had pain free range of motion on both hip joints. He had crepitus on range of motion of his knee joint with mild left knee joint effusion. He had intact skin at this time. No significant tenderness to palpation over lumbar spine area. He had minimal tenderness to palpation over trochanteric bursa, left side more than right side. I have not tested his ambulation skills at this time, but he is independent with rolling from side to side. ASSESSMENT: An elderly male with dementia, probably from cerebral atrophy and old cerebrovascular accident with recent frequent falls. The patient clinically had peripheral neuropathy. The patient is status post left hip nailing for treatment of fractured ____ left femur done in 05/11/2016. Since then he has been at [facility]. He also had degenerative joint disease with pain in his left knee and bilateral trochanteric bursitis. RECOMMENDATIONS: At his request, I have injected his left knee under aseptic skin technique after skin preparation using alcohol swab with Marcaine and Depo-Medrol solution and he tolerated the procedure satisfactorily without any side effects; agree with the plan for transfer to [facility]. He probably needs to use a roller walker while up all the time. Dr. Bliss, I appreciate asking me to participate in the care of this interesting patient. I will be glad to follow him with you as needed for his rehabilitation. VIRGEN BOO MD DR: ROWENA/mitul JOB#: [id number] / [id number]
== END 2016-07-18 16:25 | DRG 202 ==
LOC: ER 01:23 → 2 NORTH 04:02
PROVIDERS: ADMIT Internal Medicine; ATTEND Internal Medicine
DX: J20.9 Acute bronchitis, unspecified (principal); G93.41 Metabolic encephalopathy; J44.0 Chronic obstructive pulmonary disease with (acute) lower respiratory infection; E44.0 Moderate protein-calorie malnutrition; R55 Syncope and collapse; R74.8 Abnormal levels of other serum enzymes; M25.551 Pain in right hip; M06.9 Rheumatoid arthritis, unspecified; F01.50 Vascular dementia, unspecified severity, without behavioral disturbance, psychotic disturbance, mood disturbance, and anxiety; D63.8 Anemia in other chronic diseases classified elsewhere; I10 Essential (primary) hypertension; I27.2 Other secondary pulmonary hypertension; M19.90 Unspecified osteoarthritis, unspecified site; M81.0 Age-related osteoporosis without current pathological fracture; G62.9 Polyneuropathy, unspecified; I35.0 Nonrheumatic aortic (valve) stenosis; W19.XXXA Unspecified fall, initial encounter; M25.552 Pain in left hip; Z87.891 Personal history of nicotine dependence; Z86.73 Personal history of transient ischemic attack (TIA), and cerebral infarction without residual deficits; Z86.010 Personal history of colon polyps; Z79.51 Long term (current) use of inhaled steroids; Z68.20 Body mass index [BMI] 20.0-20.9, adult; Z88.8 Allergy status to other drugs, medicaments and biological substances; Y93.89 Activity, other specified; Y92.89 Other specified places as the place of occurrence of the external cause; Y99.8 Other external cause status
CPT/HCPCS: 36415; 70450; 71020; 72125; 73502; 80048; 80053; 81001; 83880; 84484; 85027; 85610; 85730; 87641; 93005; 93306; 94250; 94640; 94760; J1030; J7512; 99285-25